=== PATIENT | female | born 1960 | race Two or more races ===

== ENCOUNTER 2017-03-18 16:48 | Emergency (ER) | payer OTHER ==
[~2017-03-18] VITALS: Ht 165.1 cm; Wt 70.3 kg
[2017-03-18 16:53] VITALS: BP 132/98
--- NOTE | 2017-03-18 17:41 | NUR ---
VERBAL ORDER FROM DR MATA MECLIZINE 25 MG 1 TAB PO X1
[2017-03-20] MEDS ORDERED: MECL-102 PO (10:09)
[2017-03-20] MEDS ORDERED: TEMA15CA5 PO (10:10)
== END 2017-03-18 17:53 | disposition home or self-care (01) ==
LOC: ER 16:51
DX: R42 Dizziness and giddiness (principal); F31.9 Bipolar disorder, unspecified; Z88.6 Allergy status to analgesic agent
CPT/HCPCS: 99283; A4606; J8597; Z7610

== ENCOUNTER 2017-03-19 13:26 | Inpatient (IN) | payer OTHER ==
[~2017-03-19] VITALS: Ht 157.5 cm; Wt 56.7 kg
[2017-03-19] MEDS ORDERED: ONDANSETRON HCL/PF 4 MG/2 ML VIAL ONE (13:38)
--- NOTE | 2017-03-19 13:40 | NUR ---
[id number] FROM HOME C/O NAUSEA, DIZZINESS REPORTS THAT "SHE PROBABLY PASSED OUT". DENIES HEAD/NECK PAIN. VSS. SEEN BY MD FOR EVAL. IV ACCESS STARTED, BLOOD DRAWN FOR LABS. MEDICATED ORDERED. SAFETY AND COMFORT MEASURES PROVIDED. WILL MONITOR.
--- NOTE | 2017-03-19 13:49 | NUR ---
PT TAKEN TO CT.
[2017-03-19 13:52] LABS: BASOPHILS % (AUTO) 0.7 % (0.0-2.0); EOSINOPHILS % (AUTO) 1.2 % (0.0-6.0); HEMATOCRIT 43 % (33-45); HEMOGLOBIN 14.2 g/dL (11.5-14.8); LYMPHOCYTES # (AUTO) 1.9 /CMM (0.8-4.8); LYMPHOCYTES % (AUTO) 43.7 % (20.0-44.0); MEAN CORPUSCULAR HEMOGLOBIN 30 PG (26.0-33.0); MEAN CORPUSCULAR HGB CONC 33 g/dl (31.0-36.0); MEAN CORPUSCULAR VOLUME 91 fL (82-100); MONOCYTES # (AUTO) 0.3 /CMM (0.1-1.30); MONOCYTES % (AUTO) 8.7 % (2.0-12.0); NEUTROPHILS # (AUTO) 1.8 /CMM (1.8-8.9); NEUTROPHILS % (AUTO) 45.7 % (43.0-81.0); PLATELET COUNT (AUTO) 303 /CMM (150-450); RDW COEFFICIENT OF VARIATION 11.6 (11.5-15.0); RED BLOOD CELL COUNT(AUTO) 4.71 MIL/uL (4.0-5.2)
[2017-03-19] MEDS ORDERED: IV NS 0.9% 1,000 ML BAG IV ONE (14:00)
[2017-03-19] MEDS ORDERED: ONDANSETRON HCL/PF 4 MG/2 ML VIAL IVP ONE (14:00)
[2017-03-19 14:03] LABS: CALCIUM, SERUM 8.7 mg/dL (8.5-10.1); CARBON DIOXIDE 28 mmol/L (21-32); CHLORIDE 104 mmol/L (98-107); CREATININE 0.9 mg/dL (0.6-1.3); GLUCOSE 109 mg/dL (74-106); POTASSIUM 3.5 mmol/L (3.5-5.1); SODIUM SERUM 141 mmol/L (136-145); UREA NITROGEN, BLOOD 17 mg/dL (7-18)
[2017-03-19 14:08] LABS: ALANINE AMINOTRANSFERASE 25 U/L (12-78); ALBUMIN 3.8 g/dL (3.4-5.0); ALKALINE PHOSPHATASE 59 U/L (46-116); ASPARTATE AMINOTRANSFERASE 23 U/L (15-37); BILIRUBIN,DIRECT 0.1 mg/dL (0.0-0.2); BILIRUBIN,TOTAL 0.4 mg/dL (0.2-1.0); TOTAL PROTEIN, SERUM 7.4 g/dL (6.4-8.2); TROPONIN I < 0.017 ng/mL (0.00-0.056)
--- NOTE | 2017-03-19 14:25 | NUR ---
CALLED DR DAVILA, ON THE PHONE WITH DR GÓMEZ.
--- NOTE | 2017-03-19 15:51 | NUR ---
RECEVED T.O. ORDERS FROM DR. DAVILA.
--- NOTE | 2017-03-19 16:27 | NUR ---
REPORT GIVEN TO DEBORAH BEAR FOR 315-1 MS
[2017-03-19 18:00] VITALS: BP 116/67
[2017-03-19] MEDS ORDERED: ONDANSETRON HCL/PF 4 MG/2 ML VIAL IV PRN (18:00)
[2017-03-19] MEDS ORDERED: oxyCODONE IR immediate release 5 MG CAPSULE PO PRN (18:30)
--- NOTE | 2017-03-19 19:30 | NUR ---
MS/RN OPENING NOTES PT RECEIVED AWAKE, HOB ELEVATED, SEMI FOWLERS POSITION. ON ROOM AIR, BREATHING EVEN AND UNLABORED. DENIES SOB OR PAIN AT THIS TIME. NOTES INTERMITTENT VERTIGO WITHOUT PRECIPITATING FACTORS, REFUSING PRN MEDICATION AT THIS TIME. IV TO LAC PATENT. ENCOURAGED PT TO REMAIN IN BED AND ASK FOR ASSISTANCE WHEN GETTING OUT OF BED. PT VERBALIZED UNDERSTANDING. BED IN LOW/LOCKED POSITION, CALL LIGHT IN REACH. SIDE RAILS UPX2. WILL CONTINUE TO MONITOR
[2017-03-19] MEDS: IV NS W/20MEQ KCL 1L IV PRN ×2 (19:47)
[2017-03-19 20:00] VITALS: BP 135/72
[2017-03-19 20:39] VITALS: BP 135/72
[2017-03-19] MEDS ORDERED: IV NS W/20MEQ KCL 1L IV PRN ×2 (21:00)
[2017-03-19] MEDS ORDERED: ZOLPIDEM TARTRATE 5 MG TABLET PO PRN ×2 (21:00→22:00)
[2017-03-19] MEDS ORDERED: MECLIZINE HCL 25 MG TABLET PO SCH (21:00)
[2017-03-19] MEDS ORDERED: ONDANSETRON 4 MG TAB.RAPDIS PO PRN (21:00)
--- NOTE | 2017-03-19 21:00 | NUR ---
TEXTED DR. HENRIQUEZ FOR MRI APPROVAL.
[2017-03-19] MEDS ORDERED: TEMAZEPAM 15 MG CAPSULE PO PRN (23:00)
--- NOTE | 2017-03-19 23:01 | NUR ---
MS/RN NOTES PT REQUESTING FOR SLEEPING AID. AMBIEN ORDERED HOWEVER PT REFUSING, STATES THAT SHE HAS SIDE EFFECTS WHEN TAKING AMBIEN. SHE SAYS SHE HAS TAKEN TEMAZEPAM IN THE PAST AND WANTS TO KNOW IF SHE CAN HAVE THAT ORDERED INSTEAD. NOTIFIED DR. DAVILA AND NEW ORDERS FOR RESTORIL 15MG PO QHS PRN. ORDERS NOTED AND CARRIED OUT. AMBIEN DISCONTINUED.
[2017-03-20] VITALS: BP 131/56
[2017-03-20] MEDS: IV NS W/20MEQ KCL 1L IV PRN ×2 (06:11)
[2017-03-20] MEDS: MECLIZINE HCL 25 MG TABLET PO PRN ×2 (06:13→14:29)
[2017-03-20 06:33] LABS: BASOPHILS # (AUTO) 0.1 /CMM (0.0-0.2); BASOPHILS % (AUTO) 1.3 % (0.0-2.0); EOSINOPHILS # (AUTO) 0.1 /CMM (0.0-0.7); HEMATOCRIT 36 % (33-45); HEMOGLOBIN 12.2 g/dL (11.5-14.8); LYMPHOCYTES # (AUTO) 2.1 /CMM (0.8-4.8); LYMPHOCYTES % (AUTO) 42.5 % (20.0-44.0); MEAN CORPUSCULAR HEMOGLOBIN 31 PG (26.0-33.0); MEAN CORPUSCULAR HGB CONC 34 g/dl (31.0-36.0); MEAN CORPUSCULAR VOLUME 92 fL (82-100); MONOCYTES # (AUTO) 0.4 /CMM (0.1-1.30); MONOCYTES % (AUTO) 8.8 % (2.0-12.0); NEUTROPHILS # (AUTO) 2.3 /CMM (1.8-8.9); NEUTROPHILS % (AUTO) 45.4 % (43.0-81.0); PLATELET COUNT (AUTO) 255 /CMM (150-450); RDW COEFFICIENT OF VARIATION 12.8 (11.5-15.0); RED BLOOD CELL COUNT(AUTO) 3.93 MIL/uL (4.0-5.2)
[2017-03-20 06:44] LABS: CALCIUM, SERUM 8.4 mg/dL (8.5-10.1); CREATININE 0.8 mg/dL (0.6-1.3)
--- NOTE | 2017-03-20 06:49 | NUR ---
MS/RN CLOSING NOTES PT AWAKE, RESTING COMFORTABLY IN BED. A/OX3. ON ROOM AIR, BREATHING EVEN AND UNLABORED. DENIES SOB OR PAIN. STATES SHE SLEPT WELL (4-5HRS) POST ADMINISTRATION OF RESTORIL. IV TO LAC PATENT AND INTACT RUNNING IVF ORDERED. PRN MECLIZINE ADMINISTERED PER PT REQUEST. PT AWARE OF MRI OF HEAD TODAY. MADE PT COMFORTABLE DURING SHIFT. ALL NEEDS MET. BED IN LOW/LOCKED POSITION, CALL LIGHT IN REACH. SIDE RAILS UPX2. WILL ENDORSE TO AM SHIFT JESSIKA.
[2017-03-20 07:00] VITALS: BP 140/61
--- NOTE | 2017-03-20 07:15 | NUR ---
MS/RN OPENING NOTES RECEIVED PT AWAKE IN BED IN NO ACUTE SIGNS OF DISTRESS. ALERT AND ORIENTED X 4, NO C/O PAIN, VERTIGO OR DISCOMFORTS AT THIS TIME. ON ROOM AIR, BREATHING EVEN AND UNLABORED. IV ACCESS ON LAC INTACT AND PATENT WITH NS WITH 20MEQ KCL @ 100ML/HR IN FUSING WELL. COUNSELED PT TO REMAIN IN BED AND ASK FOR ASSISTANCE WHEN GETTING OUT OF BED, PT VERBALIZED UNDERSTANDING. BED IN LOW/LOCKED POSITION, CALL LIGHT IN REACH WITH SIDE-RAILS UPX2. WILL CONTINUE TO MONITOR ACCORDINGLY.
[2017-03-20 08:00] VITALS: BP 132/77
[2017-03-20] MEDS ORDERED: MECL-102 PO (10:09)
[2017-03-20] MEDS ORDERED: TEMA15CA5 PO (10:10)
--- NOTE | 2017-03-20 11:04 | NUR ---
RN NOTES PATIENT WENT DOWN FOR MRI OF BRAIN WITHOUT CONTRAST. CHECKLIST DONE AND SIGNED BY PT. RESULTS CAME IN NEGATIVE AND DR DAVILA ON UNIT AND AWARE OF RESULTS. DR DAVLIA ORDER PT FOR DISCHARGE TODAY.
[2017-03-20 16:00] VITALS: BP 116/75
--- NOTE | 2017-03-20 16:32 | NUR ---
SOLE PAINTER NOTES PATIENT DISCHARGED HOME IN STABLE CONDITION. LEFT UNIT A/O X 4, AMBULATORY ACCOMPANIED BY JOB ESTIMATOR AND FRIEND TO LOBBY AT 1620H, NO SIGNS OF DISTRESS AND NO C/O VERTIGO VOICED DURING DISCHARGE. V/S TAKEN AND RECORDED. BELONGINGS LIST CHECKED, COUNTED AND SIGNED FORM. SKIN IS INTACT. NO VACCINATION GIVEN PT IS AFRAID OF SIDE/ADVERSE EFFECTS DESPITE ENCOURAGEMENT. HEALTH TEACHINGS GIVEN AND VERBALIZED UNDERSTANDING. MD AND CHARGE NURSE AWARE OF DISCHARGE.
== END 2017-03-20 16:15 | disposition home or self-care (01) | DRG 111 ==
LOC: ER 13:28 → MED 16:20
PROVIDERS: ADMIT Internal Medicine; ATTEND Internal Medicine
DX: H81.10 Benign paroxysmal vertigo, unspecified ear (principal); R56.9 Unspecified convulsions; F31.9 Bipolar disorder, unspecified; Z88.6 Allergy status to analgesic agent; I10 Essential (primary) hypertension
CPT/HCPCS: 36415; 70450-TC; 70551-TC; 80048-TC; 80076-TC; 84484-TC; 85025-TC; 87081-TC; J2405; J3480; J7030; J8597; Z7610

== ENCOUNTER 2019-11-09 07:13 | Emergency (ER) | payer OTHER ==
[~2019-11-09] VITALS: Ht 157.5 cm; Wt 54.4 kg
[~2019-11-09 07:13] MED LIST: MECL-159 PO; TEMA15CA5 PO
--- NOTE | 2019-11-09 07:26 | NUR ---
CAME IN FOR L UPPER BACK PAIN R/T LUE, PAINFUL TAKING DEEP BREATH SINCE 3AM, TO ER BED 9, HOOKED TO MONITOR, CHANGED TO HOSP GOWN, WARM BLANKET PROVIDED, PATIENT AAO x 4, BREATHING EVEN AND UNLABORED, AWAITING MD DELACRUZ.
--- NOTE | 2019-11-09 07:35 | NUR ---
DR RIOS AT BEDSIDE
[2019-11-09] MEDS ORDERED: HYDROCODONE/APAP 5/325MG 1 EACH TABLET ONE ×2 (07:52→09:00)
[2019-11-09 07:54] LABS: APPEARANCE,URINE Clear (CLEAR); BILIRUBIN,URINE Negative (NEGATIVE); BLOOD, URINE Negative Ery/uL (NEGATIVE); COLOR,URINE Yellow (YELLOW); KETONES,URINE Negative (NEGATIVE); LEUKOCYTE ESTERASE ,URINE Negative (NEGATIVE); NITRITE, URINE Negative (NEGATIVE); PROTEIN,URINE Negative (NEGATIVE); UGLUCOSE Negative (NEGATIVE); UROBILINOGEN,URINE 0.2 EU/dL (0.2)
[2019-11-09] MEDS ORDERED: IV NS 0.9% 1,000 ML BAG IV ONE (08:00)
[2019-11-09] MEDS ORDERED: HYDROCODONE/APAP 5/325MG 1 EACH TABLET PO ONE ×2 (08:00→09:00)
--- NOTE | 2019-11-09 08:03 | NUR ---
RADIOLOGY AT BEDSIDE FOR CHEST XRAY.
[2019-11-09 08:05] LABS: BASOPHILS % (AUTO) 1.4 % (0.0-2.0); EOSINOPHILS % (AUTO) 1.3 % (0.0-6.0); HEMATOCRIT 37 % (33-45); HEMOGLOBIN 12.4 g/dL (11.5-14.8); LYMPHOCYTES # (AUTO) 1.2 /CMM (0.8-4.8); MEAN CORPUSCULAR HGB CONC 34 g/dl (31.0-36.0); MEAN CORPUSCULAR VOLUME 94 fL (82-100); MONOCYTES # (AUTO) 0.3 /CMM (0.1-1.30); MONOCYTES % (AUTO) 9.6 % (2.0-12.0); NEUTROPHILS % (AUTO) 54.7 % (43.0-81.0); PLATELET COUNT (AUTO) 256 /CMM (150-450); RED BLOOD CELL COUNT(AUTO) 3.92 MIL/uL (4.0-5.2); WHITE BLOOD COUNT (AUTO) 3.6 K/uL (4.3-11.0)
[2019-11-09 08:13] LABS: CALCIUM, SERUM 8.6 mg/dL (8.5-10.1); CARBON DIOXIDE 29 mmol/L (21-32); CHLORIDE 106 mmol/L (98-107); CREATININE 0.8 mg/dL (0.6-1.3); GLUCOSE 88 mg/dL (74-106); POTASSIUM 3.7 mmol/L (3.5-5.1); SODIUM SERUM 142 mmol/L (136-145); UREA NITROGEN, BLOOD 19 mg/dL (7-18)
[2019-11-09] MEDS ORDERED: LIDOCAINE 5% (PATCH) 1 EA PATCH TP SCH (09:00)
[2019-11-09 10:40] VITALS: BP 134/71
--- NOTE | 2019-11-09 10:40 | NUR ---
PT. VERBALIZED UNDERSTANDING OF AFTERCARE INSTRUCTIONS.Patient discharged to home in stable condition. Written and verbal after care instructions given. Patient verbalizes understanding of instruction.
== END 2019-11-09 10:42 | disposition home or self-care (01) ==
LOC: ER 07:14
DX: M54.6 Pain in thoracic spine (principal); I10 Essential (primary) hypertension; Z88.6 Allergy status to analgesic agent; Z60.2 Problems related to living alone; Z79.899 Other long term (current) drug therapy
CPT/HCPCS: 36415; 71045; 80048; 81001; 84484; 85025; 93005; 99285; J7030; 81000-TC

== ENCOUNTER 2020-08-18 20:24 | Emergency (ER) | payer OTHER ==
[~2020-08-18] VITALS: Ht 157.5 cm; Wt 54.4 kg
--- NOTE | 2020-08-18 21:02 | NUR ---
PT AAOX4. BIBSELF C/O R UPPER BACK PAIN SINCE 4PM. PT STATING SHE WAS SEEN HERE BEFORE FOR THE SAME PAIN. PLACED IN EBD 12 ON MONITOR AND PULSE OX. ER PA AT BEDSIDE FOR EVAL. AWAITING ORDERS.
[2020-08-18] MEDS ORDERED: HYDROCODONE/APAP 5/325MG TABLET ONE (21:20)
[2020-08-18] MEDS: HYDROCODONE/APAP 5/325MG TABLET PO ONE (21:24)
[2020-08-18 21:28] VITALS: BP 142/83
--- NOTE | 2020-08-18 21:29 | NUR ---
PT MEDICATED, WILL REASSESS PAIN
[2020-08-18] MEDS ORDERED: HYDR-4303 PO (22:10)
[2020-08-18] MEDS ORDERED: IBUP-1955 PO (22:10)
--- NOTE | 2020-08-18 22:20 | NUR ---
Patient discharged to home in stable condition. Written and verbal after care instructions given. Patient verbalizes understanding of instruction.
--- NOTE | 2020-08-18 22:21 | NUR ---
PATIENT IS PICKED UP BY HER UBER.
== END 2020-08-18 22:21 | disposition home or self-care (01) ==
LOC: ER 20:24
DX: S29.012A Strain of muscle and tendon of back wall of thorax, initial encounter (principal); G40.909 Epilepsy, unspecified, not intractable, without status epilepticus; I10 Essential (primary) hypertension; Z88.6 Allergy status to analgesic agent; Z79.899 Other long term (current) drug therapy; X58.XXXA Exposure to other specified factors, initial encounter; Y93.89 Activity, other specified; Y92.89 Other specified places as the place of occurrence of the external cause; Y99.8 Other external cause status

== ENCOUNTER 2020-09-26 | Emergency (ER) | payer OTHER ==
[~2020-09-26] VITALS: Ht 157.5 cm; Wt 56.2 kg
[2020-09-26] VITALS: BP 126/70
[~2020-09-26] MED LIST changes: +HYDR-4303 PO; +IBUP-1955 PO
[2020-09-26] MEDS ORDERED: ONDANSETRON 4 MG TAB.RAPDIS ONE (00:19)
[2020-09-26] MEDS ORDERED: ONDANSETRON 4 MG TAB.RAPDIS SL ONE (00:30)
--- NOTE | 2020-09-26 00:30 | NUR ---
PATIENT CAME TO ER BED 10 BIBRA C/O OVERDOSE FROM CANNABIS OIL. PATIENT IS STATING THAT SHE WAS TRYING TO USE THE OIL FOR SLEEP. PATIENT IS AAOX3. SOMNOLENT. CONNECTED TO MONITOR. BREATHING EVENLY AND UNLABORED ON ROOM AIR AT 99%.
--- NOTE | 2020-09-26 04:29 | NUR ---
PATIENT IS SLEEPING. EASILY AROUSABLE THROUGH VERBAL STIMULI. PATIENT'S BED IS AT THE LOWEST POSITION. CALL LIGHT IS WITHIN REACH. WARM BLANKET PROVIDED FOR COMFORT. WILL CONTINUE TO MONITOR PATIENT CLOSELY.
--- NOTE | 2020-09-26 05:33 | NUR ---
Patient discharged to home in stable condition. Written and verbal after care instructions given. Patient verbalizes understanding of instruction.
--- NOTE | 2020-09-26 05:39 | NUR ---
PATIENT IS PICKED UP BY YINKA FOSTER.
== END 2020-09-26 05:39 | disposition home or self-care (01) ==
LOC: ER
DX: F12.929 Cannabis use, unspecified with intoxication, unspecified (principal); I10 Essential (primary) hypertension; Z88.6 Allergy status to analgesic agent; Z79.899 Other long term (current) drug therapy
CPT/HCPCS: 93005; 99283; Q0162

== ENCOUNTER 2022-11-11 21:44 | Inpatient (IN) | payer MEDICAID, OTHER ==
[~2022-11-11] VITALS: Ht 157.5 cm; Wt 54.4 kg
[2022-11-11 22:16] LABS: BASOPHILS # (AUTO) 0.1 K/uL (0.0-0.2); BASOPHILS % (AUTO) 1.2 % (0.0-2.0); EOSINOPHILS % (AUTO) 2.7 % (0.0-6.0); HEMATOCRIT 40 % (33-45); HEMOGLOBIN 13.3 g/dL (11.5-14.8); LYMPHOCYTES # (AUTO) 1.8 K/uL (0.8-4.8); LYMPHOCYTES % (AUTO) 33.1 % (20.0-44.0); MEAN CORPUSCULAR HGB CONC 33 g/dl (31.0-36.0); MEAN CORPUSCULAR VOLUME 91 fL (82-100); MONOCYTES # (AUTO) 0.5 K/uL (0.1-1.30); MONOCYTES % (AUTO) 8.5 % (2.0-12.0); NEUTROPHILS % (AUTO) 54.5 % (43.0-81.0); PLATELET COUNT (AUTO) 289 K/uL (150-450); RED BLOOD CELL COUNT(AUTO) 4.38 MIL/uL (4.0-5.2); WHITE BLOOD COUNT (AUTO) 5.5 K/uL (4.3-11.0)
[2022-11-11 22:28] LABS: CALCIUM, SERUM 9.8 mg/dL (8.5-10.1); CARBON DIOXIDE 28 mmol/L (21-32); CHLORIDE 104 mmol/L (98-107); CREATININE 0.9 mg/dL (0.6-1.3); GLUCOSE 119 mg/dL (74-106); POTASSIUM 3.5 mmol/L (3.5-5.1); SODIUM SERUM 141 mmol/L (136-145); UREA NITROGEN, BLOOD 20 mg/dL (7-18)
[2022-11-11] MEDS ORDERED: ASPIRIN 81 MG TAB.CHEW PO ONE (22:30)
[2022-11-11] MEDS ORDERED: ASPIRIN 81 MG TAB.CHEW ONE (22:33)
[2022-11-12] MEDS ORDERED: METOPROLOL TARTRATE INJ 5 MG/5 ML AMPUL IV ONE (00:30)
[2022-11-12] MEDS ORDERED: METOPROLOL TARTRATE INJ 5 MG/5 ML AMPUL ONE (00:59)
[2022-11-12 02:45] VITALS: BP 125/69
[2022-11-12] MEDS ORDERED: MECLIZINE HCL 12.5 MG TABLET PO PRN (03:00)
[2022-11-12] MEDS ORDERED: clonazePAM 0.5 MG TABLET PO PRN (03:00)
[2022-11-12 06:23] LABS: BASOPHILS # (AUTO) 0.1 K/uL (0.0-0.2); BASOPHILS % (AUTO) 1.2 % (0.0-2.0); EOSINOPHILS % (AUTO) 3.1 % (0.0-6.0); HEMATOCRIT 38 % (33-45); HEMOGLOBIN 12.5 g/dL (11.5-14.8); LYMPHOCYTES # (AUTO) 1.7 K/uL (0.8-4.8); LYMPHOCYTES % (AUTO) 36.5 % (20.0-44.0); MEAN CORPUSCULAR HGB CONC 33 g/dl (31.0-36.0); MEAN CORPUSCULAR VOLUME 92 fL (82-100); MONOCYTES # (AUTO) 0.5 K/uL (0.1-1.30); MONOCYTES % (AUTO) 10.5 % (2.0-12.0); NEUTROPHILS # (AUTO) 2.3 K/uL (1.8-8.9); NEUTROPHILS % (AUTO) 48.7 % (43.0-81.0); PLATELET COUNT (AUTO) 276 K/uL (150-450); RED BLOOD CELL COUNT(AUTO) 4.11 MIL/uL (4.0-5.2); WHITE BLOOD COUNT (AUTO) 4.7 K/uL (4.3-11.0)
[2022-11-12] MEDS ORDERED: MECLIZINE HCL 25 MG TABLET PO PRN (06:30)
[2022-11-12 06:42] LABS: CREATININE 0.8 mg/dL (0.6-1.3); POTASSIUM 3.8 mmol/L (3.5-5.1)
[2022-11-12 06:55] LABS: THYROID STIMULATING HORMONE 2.017 uIU/mL (0.358-3.74)
[2022-11-12] MEDS ORDERED: PANTOPRAZOLE 40 MG TABLET.DR PO SCH (07:30)
[2022-11-12] MEDS: TRAMADOL HCL 50 MG TABLET PO SCH ×2 (08:30→09:00)
[2022-11-12 08:38] VITALS: BP 113/64
[2022-11-12] MEDS ORDERED: METOPROLOL TARTRATE 25 MG TABLET PO SCH (09:00)
[2022-11-12] MEDS ORDERED: ASPIRIN 81 MG TAB.CHEW PO SCH (09:00)
[2022-11-12] MEDS ORDERED: GABAPENTIN 300 MG CAPSULE PO SCH (09:00)
[2022-11-12] MEDS ORDERED: ENOXAPARIN SODIUM 40 MG/0.4 ML DISP.SYRIN SQ SCH (09:00)
[2022-11-12] MEDS ORDERED: CLON0.5T4 PO (10:07)
[2022-11-12] MEDS ORDERED: TRAM50TA2 PO (10:07)
[2022-11-12] MEDS ORDERED: ATORVASTATIN 10 MG TABLET PO SCH (22:00)
[2022-11-12] MEDS ORDERED: TEMAZEPAM 15 MG CAPSULE PO SCH (22:00)
== END 2022-11-12 15:38 | disposition home or self-care (01) | DRG 203 ==
LOC: ER 21:45 → TELE 11-12 00:41
PROVIDERS: ADMIT Internal Medicine; ATTEND Internal Medicine
DX: R07.89 Other chest pain (principal); E78.5 Hyperlipidemia, unspecified; F41.0 Panic disorder [episodic paroxysmal anxiety]; F31.9 Bipolar disorder, unspecified; G47.00 Insomnia, unspecified; I10 Essential (primary) hypertension; Z87.891 Personal history of nicotine dependence; Z88.6 Allergy status to analgesic agent; Z20.822 Contact with and (suspected) exposure to COVID-19
CPT/HCPCS: 36415; 71045-TC; 80048-TC; 80061-TC; 83880; 84443-TC; 84484-TC; 85025-TC; 85730-TC; 87081-TC; 93307-TC; C9803; G0378; J1650; J3490; J8597

== ENCOUNTER 2024-12-29 15:22 | Emergency (ER) | payer MEDICAID ==
[~2024-12-29] VITALS: Ht 157.5 cm; Wt 56.7 kg
[~2024-12-29 15:22] MED LIST changes: +CLON0.5T4 PO; -HYDR-4303 PO; -IBUP-1955 PO; -MECL-159 PO; -TEMA15CA5 PO; +TRAM50TA2 PO
[2024-12-29] MEDS ORDERED: IBUP-1492 PO (17:38)
[2024-12-29] MEDS ORDERED: OXYC5TAB3 PO (17:38)
[2024-12-29] MEDS ORDERED: KETOROLAC TROMETHAMINE 15 MG/ML VIAL ONE (17:47)
[2024-12-29] MEDS ORDERED: CYCLOBENZAPRINE 10 MG TABLET ONE (17:47)
[2024-12-29] MEDS: KETOROLAC TROMETHAMINE 15 MG/ML VIAL IM ONE (17:50)
[2024-12-29] MEDS: CYCLOBENZAPRINE 10 MG TABLET PO ONE (17:52)
[2024-12-29 18:11] VITALS: BP 118/77; TEMP 97.7; O2SAT 95
[2024-12-31] MEDS ORDERED: oxyCODONE HCL SR 10MG TAB.SR.12H PO ONE (21:18)
== END 2024-12-29 18:11 | disposition home or self-care (01) ==
LOC: ER 15:39
DX: M54.89 Other dorsalgia (principal); E78.5 Hyperlipidemia, unspecified; Z60.2 Problems related to living alone
CPT/HCPCS: 99283; 96372; J1885

== ENCOUNTER 2024-12-31 17:53 | Emergency (ER) | payer MEDICAID ==
[~2024-12-31] VITALS: Ht 157.5 cm; Wt 56.7 kg
[~2024-12-31 17:53] MED LIST changes: +IBUP-1492 PO; +OXYC5TAB3 PO
[2024-12-31] MEDS ORDERED: KETOROLAC TROMETHAMINE INJ 30 MG/ML VIAL ONE (18:54)
[2024-12-31] MEDS: IV NS 0.9% 1,000 ML BAG IV ONE (19:10)
[2024-12-31] MEDS: KETOROLAC TROMETHAMINE INJ 30 MG/ML VIAL IV ONE ×2 (19:10→20:38)
[2024-12-31 19:13] LABS: PLATELET COUNT (AUTO) 264 K/uL (150-450); RED BLOOD CELL COUNT(AUTO) 4.54 MIL/uL (4.0-5.2); RED CELL DISTRIBUTION WIDTH 12.9 % (11.5-15.0); WHITE BLOOD COUNT (AUTO) 6.0 K/uL (4.3-11.0)
[2024-12-31 19:32] LABS: CALCIUM, SERUM 9.2 mg/dL (8.5-10.1); CREATININE 0.7 mg/dL (0.6-1.3); SODIUM SERUM 138.0 mmol/L (136-145); UREA NITROGEN, BLOOD 16.0 mg/dL (7-18)
[2024-12-31 19:38] LABS: APPEARANCE,URINE CLEAR (CLEAR); BLOOD, URINE NEGATIVE Ery/uL (NEGATIVE); LEUKOCYTE ESTERASE ,URINE TRACE (NEGATIVE); NITRITE, URINE NEGATIVE (NEGATIVE); UGLUCOSE NEGATIVE (NEGATIVE)
[2024-12-31 19:39] LABS: ASPARTATE AMINOTRANSFERASE 18.0 U/L (15-37); TOTAL PROTEIN, SERUM 8.0 g/dL (6.4-8.2)
[2024-12-31 19:51] LABS: ADD URINE CULTURE NO; SQUAMOUS EPITHELIAL CELL,UR 0-2 /HPF (None Seen)
[2024-12-31] MEDS ORDERED: KETO10TA2 PO (20:42)
[2024-12-31] MEDS: oxyCODONE HCL SR 10MG TAB.SR.12H PO SCH ×2 (21:20→21:39)
[2024-12-31 21:39] VITALS: BP 134/74; TEMP 98; O2SAT 100
== END 2024-12-31 21:47 | disposition home or self-care (01) ==
LOC: ER 17:55
DX: M54.9 Dorsalgia, unspecified (principal); R10.9 Unspecified abdominal pain; I10 Essential (primary) hypertension; E78.5 Hyperlipidemia, unspecified; F19.10 Other psychoactive substance abuse, uncomplicated; Z87.448 Personal history of other diseases of urinary system; Z87.39 Personal history of other diseases of the musculoskeletal system and connective tissue; Z88.8 Allergy status to other drugs, medicaments and biological substances; Z60.2 Problems related to living alone
CPT/HCPCS: 99285; 74176; 96374; 96361; 85025; 80048; 83690; 80076; 81001; 36415; J1885 ×2; J7030; 87086-TC